=== PATIENT | female | born 1940 | race Caucasian/White ===

== ENCOUNTER 2017-09-17 08:10 | Day surgery (SDC) | payer MEDICARE, BC ==
[2017-09-17] MEDS ORDERED: PROPOFOL 40 ML (09:17)
== END 2017-09-17 11:24 | disposition home or self-care (01) ==
LOC: GIL 08:10
DX: K21.0 Gastro-esophageal reflux disease with esophagitis (principal); K29.30 Chronic superficial gastritis without bleeding
CPT/HCPCS: 43239; 88305; 88312; 88313